=== PATIENT | female | born 1965 | race Caucasian/White ===

== ENCOUNTER 2017-02-05 20:46 | Emergency (ER) | payer MEDICARE ==
[~2017-02-05] VITALS: Ht 160 cm; Wt 70.3 kg
--- NOTE | 2017-02-05 21:20 | NUR ---
Ambulatory w/ steady gait to laurie pan & support to DAMIAN. placed in gown, pending further eval fr [facility].
--- NOTE | 2017-02-05 21:32 | NUR ---
LUZ MARIA Duque at bedside for eval.
[2017-02-05] MEDS ORDERED: oxyCODONE/APAP (5/325 MG) 1 UDTAB TABLET ONE (21:54)
[2017-02-05] MEDS ORDERED: oxyCODONE/APAP (5/325 MG) 1 UDTAB TABLET PO ONE (22:00)
--- NOTE | 2017-02-05 22:01 | NUR ---
sent to XR.
--- NOTE | 2017-02-05 22:48 | NUR ---
pt continues to be at XR.
--- NOTE | 2017-02-05 22:51 | NUR ---
pt back fr XR.
--- NOTE | 2017-02-06 00:20 | NUR ---
LUZ MARIA Duque at bedside for update on pt status.
--- NOTE | 2017-02-06 00:28 | NUR ---
Patient ambulatory w/ steady gait, resp even & unlabored, nad noted. Patient discharged to home in stable condition. Written and verbal after care instructions given along w/ prescriptions for motrin and percocet, instructed not to drive while on pain medications. Patient verbalizes understanding of instruction.
[2017-02-06 00:30] VITALS: BP 138/78
== END 2017-02-06 00:30 | disposition home or self-care (01) ==
LOC: ER 20:50
DX: S30.1XXA Contusion of abdominal wall, initial encounter (principal); S80.01XA Contusion of right knee, initial encounter; S40.011A Contusion of right shoulder, initial encounter; Z88.1 Allergy status to other antibiotic agents; S20.219A Contusion of unspecified front wall of thorax, initial encounter; V43.62XA Car passenger injured in collision with other type car in traffic accident, initial encounter; Y93.89 Activity, other specified; Y92.488 Other paved roadways as the place of occurrence of the external cause; Y99.8 Other external cause status
CPT/HCPCS: 71250-TC; 72074-TC; 72100-TC; 72192-TC; 73030-TC; 73564-TC; 74150-TC; A4606

== ENCOUNTER 2017-02-10 14:42 | Emergency (ER) | payer MEDICARE ==
[~2017-02-10] VITALS: Ht 160 cm; Wt 59.0 kg
[2017-02-10 14:42] VITALS: BP 115/82
--- NOTE | 2017-02-10 15:04 | NUR ---
PT LEFT WITHOUT DISCHARGE PAPERS. MADE AWARE.
== END 2017-02-10 15:03 | disposition left against medical advice (07) ==
LOC: ER 14:43
DX: S20.219A Contusion of unspecified front wall of thorax, initial encounter (principal); Z88.1 Allergy status to other antibiotic agents; V43.92XA Unspecified car occupant injured in collision with other type car in traffic accident, initial encounter; Y93.89 Activity, other specified; Y92.488 Other paved roadways as the place of occurrence of the external cause; Y99.8 Other external cause status
CPT/HCPCS: 99281; A4606; Z7502; Z7610

== ENCOUNTER 2017-07-30 21:34 | Emergency (ER) | payer MEDICARE ==
[~2017-07-30] VITALS: Ht 152.4 cm; Wt 68.0 kg
[2017-07-30 22:10] VITALS: BP 122/62
== END 2017-07-30 22:59 | disposition home or self-care (01) ==
LOC: ER 21:39
DX: K11.5 Sialolithiasis (principal); Z88.1 Allergy status to other antibiotic agents
CPT/HCPCS: 99283; A4606; Z7610

== ENCOUNTER 2017-08-30 15:29 | Emergency (ER) | payer MEDICARE ==
[~2017-08-30] VITALS: Ht 160 cm; Wt 59.0 kg
[2017-08-30 15:30] VITALS: BP 116/76
[2017-08-30] MEDS ORDERED: KETOROLAC TROMETHAMINE INJ 60 MG/2 ML VIAL IM ONE (16:00)
[2017-08-30] MEDS ORDERED: KETOROLAC TROMETHAMINE INJ 30 MG/ML VIAL ONE (16:04)
== END 2017-08-30 16:35 | disposition home or self-care (01) ==
LOC: ER 15:31
DX: M54.12 Radiculopathy, cervical region (principal); Z88.1 Allergy status to other antibiotic agents
CPT/HCPCS: 96372; 99283; A4606; J1885; Z7610